=== PATIENT | male | born 1965 | race Caucasian/White ===

== ENCOUNTER 2019-11-06 17:12 | Emergency (ER) | payer OTHER ==
[~2019-11-06] VITALS: Ht 170.2 cm; Wt 91.0 kg
[2019-11-06 17:20] VITALS: BP 115/85
[2019-11-06] MEDS ORDERED: GELATIN SPONGE SIZE 12-7MM SPONGE. ONE (17:27)
--- NOTE | 2019-11-06 17:37 | PHYS DOC ---
General Adult EDM: Chief Complaint: LACERATION/AVULSION HPI: HPI: 54 yo M PMH insomnia, gerd, seasonal allergies and low back pain (takens motrin), presents to the ED after cutting his left nondominant distal thumb just prior to arrival on a kitchen knife. States he usually faints with the site of blood, so came to be checked out. Reports his tetanus has been updated in the past ten years. ROS: No associated fever, chills, cough, dyspnea, sore throat, chest pain, nausea, vomiting, syncope, headache, lightheadedness, neck stiffness or other concerning symptoms. Review of Systems: Review of Systems: Constitutional: Denies fever or chills Eyes: Denies change in visual acuity HENT: Denies nasal congestion or sore throat Respiratory: Denies cough or shortness of breath Cardiovascular: Denies chest pain or edema GI: Denies abdominal pain, nausea, vomiting, bloody stools or diarrhea : Denies dysuria Musculoskeletal: Denies back pain or joint pain Integument: Denies rash Neurologic: Denies headache, focal weakness or sensory changes Endocrine: Denies polyuria or polydipsia Lymphatic: Denies swollen glands Psychiatric: Denies depression or anxiety Heart Score: Risk Factors: Risk Factors: DM, Current or recent (<one month) smoker, HTN, HLP, family history of CAD, obesity. Risk Scores: Score 0 - 3: 2.5% MACE over next 6 weeks - Discharge Home Score 4 - 6: 20.3% MACE over next 6 weeks - Admit for Clinical Observation Score 7 - 10: 72.7% MACE over next 6 weeks - Early Invasive Strategies Current Medications: Current Meds: Current Medications Medications (Trade) Dose Ordered Sig/[facility] Start Time Stop Time Status Last Admin Dose Admin Gelatin (Gelfoam Size 12-7mm) 1 each STK-MED ONCE 11/06/19 17:27 11/06/19 17:28 DC Physical Exam: PE: Constitutional: Well developed, well nourished, no acute distress, non-toxic appearance. [] HENT: Normocephalic, atraumatic, bilateral external ears normal, oropharynx moist, no oral exudates, nose normal. [] Eyes: EOMI, conjunctiva normal, no discharge. [] Skin: Warm, dry, no erythema, no rash. [] Back: No tenderness, no CVA tenderness. [] Extremities: No tenderness, no cyanosis, no clubbing, ROM intact, no edema, very superficial distal fingertip avulsion less than .25 x.25 cm with minimal bleeding, FROM left thumb MC and IP joints w/abduction/adduction intact Neurologic: Alert and oriented X 3, normal motor function, normal sensory function, no focal deficits noted. [] Psychologic: Affect normal, judgement normal, mood normal. [] EKG: EKG: [] Radiology/Procedures: Radiology/Procedures: [] Course & Med Decision Making: Course & Med Decision Making Pertinent Labs and Imaging studies reviewed. (See chart for details) Concern for left fingertip avulsion of patient's thumb with full range of motion. Hemostasis achieved with sterile dressings and wound care instructions given with strict ED return precautions given for fever or rash. Encouraged outpatient PMD follow-up. Encouraged urgent outpatient follow-up with PMD. Life-threatening processes were considered (neurovascular injury, tendon injury, compartment syndrome, etc.) but are low suspicion at this time, given history and physical exam. All patient's questions were answered and pt was stable at time of discharge. I spoken with the patient and her caregivers. I explained the patient's condition, diagnoses and treatment plan based on the information available to me at this time. I have answered the patient and her caregiver's questions and a ddressed any concerns. The patient and her caregivers have a good understanding of patient's diagnosis, condition and treatment plan as can be expected at this point. Vital signs have been stable. Patient's condition is stable and appropriate for discharge from the emergency department. Patient will pursue further outpatient evaluation with primary care physician or other designated or consulting physician as outlined in the discharge instructions. The patient and/or caregivers are agreeable to this plan of care and follow-up instructions have been explained in detail. The patient and/or caregivers have received these instructions in written form and have expressed an understanding of the discharge instructions. The patient and/or caregivers are aware that any significant change of condition or worsening of symptoms should prompt immediate return to this or the closest emergency department or call to 911. Jordan Disclaimer: Jordan Disclaimer: This electronic medical record was generated, in whole or in part, using a voice recognition dictation system. Departure Departure: Impression: Primary Impression: Avulsion of fingertip Disposition: 01 HOME/RESIDENCE PRIOR TO ADM Condition: STABLE Referrals: PCP,UNKNOWN (PCP) Patient Instructions: Finger Avulsion, Fingertip Injuries and Amputations Justification of Admission: Justification of Admission: Justification of Admission Dx: N/A TIARA WHITE DO Nov 06, 2019 17:37
== END 2019-11-06 17:42 | disposition home or self-care (01) ==
LOC: ER 17:12
DX: S61.102A Unspecified open wound of left thumb with damage to nail, initial encounter (principal); G47.00 Insomnia, unspecified; W26.0XXA Contact with knife, initial encounter; Y93.89 Activity, other specified; Y92.89 Other specified places as the place of occurrence of the external cause; Y99.8 Other external cause status
CPT/HCPCS: 99281